=== PATIENT | female | born 1950 | race Caucasian/White ===

== ENCOUNTER → 2017-03-03 | Outpatient (CLI) | payer OTHER | LOC: KOH-I 11:58 | DX: M54.12 Radiculopathy, cervical region (principal); M48.00 Spinal stenosis, site unspecified; M79.601 Pain in right arm; M79.602 Pain in left arm; M50.81 Other cervical disc disorders, high cervical region | CPT/HCPCS: 72141 ==

== ENCOUNTER → 2020-08-09 | Day surgery (SDC) | payer OTHER ==
[~2020-08-09] MED LIST: ALLEGRA ALLERGY60 MG PO; ASPIR-LOW81 MG PO; CELEBREX100 MG PO; COQ-10100 MG PO; DAILY MULTIPLE1 EAC1 PO; FLEXERIL PO; PEPCID40 MG PO; PRALUENT SC; PROTONIX 40 MG40 M1 PO; SERTRALINE HCL50 MG PO; SYNTHROID100 MCG PO; TURMERIC PO; VITAMIN D325 MCG PO; ZANTAC300 MG PO; ZOLOFT50 MG PO
== END | disposition home or self-care (01) ==
LOC: OR 06:45
DX: K22.2 Esophageal obstruction (principal); K21.00 Gastro-esophageal reflux disease with esophagitis, without bleeding; K44.9 Diaphragmatic hernia without obstruction or gangrene; E66.9 Obesity, unspecified; E03.9 Hypothyroidism, unspecified; M19.90 Unspecified osteoarthritis, unspecified site; Z87.891 Personal history of nicotine dependence; Z68.32 Body mass index [BMI] 32.0-32.9, adult; Z88.5 Allergy status to narcotic agent; Z88.8 Allergy status to other drugs, medicaments and biological substances; Z79.82 Long term (current) use of aspirin; Z79.899 Other long term (current) drug therapy
CPT/HCPCS: J2704; J3010; J7040

== ENCOUNTER → 2022-01-07 | Day surgery (SDC) | payer OTHER ==
[~2022-01-07] MED LIST changes: +BENADRYL25 MG PO; +LEVOTHYROXINE125 MC1 PO; +PROTONIX40 MG PO; +REPATHA SY140 MG/1 M SQ
== END | disposition home or self-care (01) ==
LOC: OR 06:21
DX: K57.30 Diverticulosis of large intestine without perforation or abscess without bleeding (principal); K31.9 Disease of stomach and duodenum, unspecified; N18.2 Chronic kidney disease, stage 2 (mild); J44.9 Chronic obstructive pulmonary disease, unspecified; E78.01 Familial hypercholesterolemia; E03.9 Hypothyroidism, unspecified; I73.9 Peripheral vascular disease, unspecified; K21.9 Gastro-esophageal reflux disease without esophagitis; Z86.010 Personal history of colon polyps; Z88.8 Allergy status to other drugs, medicaments and biological substances; Z79.899 Other long term (current) drug therapy
CPT/HCPCS: J2704

== ENCOUNTER 2022-01-08 08:36 | Emergency (ER) | payer OTHER ==
[~2022-01-08 08:36] MED LIST changes: -BENADRYL25 MG PO
[2022-01-08] MEDS ORDERED: BENADRYL25 MG PO (10:17)
== END 2022-01-08 11:25 | disposition home or self-care (01) ==
LOC: ER1 08:36
DX: T78.40XA Allergy, unspecified, initial encounter (principal); R21 Rash and other nonspecific skin eruption; E78.5 Hyperlipidemia, unspecified; Z88.8 Allergy status to other drugs, medicaments and biological substances
CPT/HCPCS: 96374; 96375; 99282; J1200; J2930

== ENCOUNTER 2022-01-12 18:28 | Emergency (ER) | payer OTHER ==
[~2022-01-12 18:28] MED LIST changes: +BENADRYL25 MG PO
== END 2022-01-12 19:30 | disposition left against medical advice (07) ==
LOC: ER1 18:28
DX: Z53.21 Procedure and treatment not carried out due to patient leaving prior to being seen by health care provider (principal)